=== PATIENT | male | born 1990 | race Caucasian/White ===

== ENCOUNTER 2019-02-18 08:31 | Emergency (ER) | payer BC ==
[~2019-02-18] VITALS: Ht 185.4 cm; Wt 72.7 kg
[~2019-02-18 08:31] MED LIST: CYCLOBENZAPRINE10 M1 PO; NORCO 325 MG-51 TAB PO
[2019-02-18 08:56] LABS: EOS # 0.1 (0.04-0.40); EOS % 1.6 % (0.0-4.0); HEMATOCRIT 41.7 % (42.0-52.0); HEMOGLOBIN 13.7 g/dL (13.5-18.0); LYMPH# 2.6 (1.50-4.00); MEAN CELL VOLUME 93 fl (78-100); MEAN CORPUSCULAR HEMOGLOBIN 31 pg (27-31); MEAN CORPUSCULAR HGB CONC 33 g/dL (33-37); MEAN PLATELET VOLUME 9.7 fl (7.4-10.4); MONO # 0.7 (0.20-0.80); PLATELET COUNT 224 K/mm3 (130-400); RED BLOOD COUNT 4.48 M/mm3 (4.20-5.60); RED CELL DISTRIBUTION WIDTH 13.7 % (11.5-14.5); WHITE BLOOD COUNT 7.4 K/mm3 (4.8-10.8)
[2019-02-18 09:07] LABS: ALBUMIN 4.1 g/dL (3.5-5.0); POTASSIUM 3.6 mmol/L (3.5-5.1); SODIUM 145 mmol/L (136-145)
[2019-02-18 09:09] LABS: GLUCOSE 91 mg/dL (75-110); TOTAL PROTEIN 6.5 g/dL (6.4-8.3)
[2019-02-18 09:11] LABS: CARBON DIOXIDE 25 mmol/L (22-29); TOTAL BILIRUBIN 0.4 mg/dL (0.2-1.2)
[2019-02-18 09:15] LABS: AST-SGOT 14 U/L (5-34)
[2019-02-18 09:16] LABS: ALT/SGPT 15 U/L (0-55)
[2019-02-18 09:17] LABS: LIPASE 40 U/L (8-78)
[2019-02-18 09:25] LABS: TROPONIN-I < 0.03 ng/mL (<0.030)
[2019-02-18 10:30] VITALS: BP 133/83
== END 2019-02-18 10:30 | disposition home or self-care (01) ==
LOC: ED 08:31
PROVIDERS: Nurse Practitioner
DX: R07.89 Other chest pain (principal); F17.210 Nicotine dependence, cigarettes, uncomplicated; F12.90 Cannabis use, unspecified, uncomplicated
CPT/HCPCS: J1885

== ENCOUNTER → 2019-10-10 | Outpatient (CLI) | payer BC | LOC: RAD 12:00 | DX: R10.32 Left lower quadrant pain (principal) | CPT/HCPCS: Q9967 ==

== ENCOUNTER 2019-11-12 16:09 | Emergency (ER) | payer BC ==
[2019-11-12] MEDS ORDERED: NORCO 325 MG-51 TA1 PO (17:32)
[2019-11-12] MEDS ORDERED: AMOXICILLIN AND1 TA2 PO (17:32)
[2019-11-12] MEDS ORDERED: AUGMENTIN 875-1 EAC1 PO (17:34)
[2019-11-12 17:46] VITALS: BP 136/68
== END 2019-11-12 17:47 | disposition home or self-care (01) ==
LOC: ED 16:09
DX: S61.052A Open bite of left thumb without damage to nail, initial encounter (principal); S61.012A Laceration without foreign body of left thumb without damage to nail, initial encounter; F17.210 Nicotine dependence, cigarettes, uncomplicated; W54.0XXA Bitten by dog, initial encounter; Y92.009 Unspecified place in unspecified non-institutional (private) residence as the place of occurrence of the external cause

== ENCOUNTER → 2019-11-22 | Outpatient (CLI) | payer BC ==
[2019-11-12 17:46] VITALS: BP 136/68
[~2019-11-22] MED LIST changes: +AMOXICILLIN AND1 TA2 PO; +AUGMENTIN 875-1 EAC1 PO; +NORCO 325 MG-51 TA1 PO
== END ==
LOC: AMSURD 10:29
DX: Z48.02 Encounter for removal of sutures (principal)